=== PATIENT | female | born 1970 | race Caucasian/White ===

== ENCOUNTER 2021-10-31 15:24 | Emergency (ER) | payer OTHER, SELFPAY ==
[2021-10-31 15:38] VITALS: BP 118/80; PULSE 80; RESP 18; TEMP 36.6; O2SAT 98; BMI 31.7
[2021-10-31 16:30] VITALS: BP 124/82; PULSE 66; RESP 18; O2SAT 99
[2021-10-31 16:49] VITALS: PULSE 65; O2SAT 96
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
[2021-10-31 17:00] VITALS: PULSE 70; O2SAT 97
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
[2021-10-31] MEDS: ACETAMINOPHEN 325 MG TABLET 975 MG PO (17:51)
[2021-10-31] MEDS: methocarbamoL 500 MG TABLET PO (17:51)
== END 2021-10-31 17:58 | disposition home or self-care (01) ==
PROVIDERS: Emergency Provider Nurse Practitioner Critical Care Medicine
DX: S00.83XA Contusion of other part of head, initial encounter (principal); R51.9 Headache, unspecified; S46.812A Strain of other muscles, fascia and tendons at shoulder and upper arm level, left arm, initial encounter; V89.2XXA Person injured in unspecified motor-vehicle accident, traffic, initial encounter; Z86.69 Personal history of other diseases of the nervous system and sense organs
CPT/HCPCS: 70450; 99283; 99284